=== PATIENT | female | born 1970 | race Caucasian/White ===

== ENCOUNTER 2023-08-15 15:05 | Outpatient (CLI) | payer MEDICAID | END 2023-08-15 23:59 | disposition critical access hospital (66) | LOC: EMS 15:05 | DX: M79.622 Pain in left upper arm (principal); R55 Syncope and collapse; W18.39XA Other fall on same level, initial encounter; Y92.008 Other place in unspecified non-institutional (private) residence as the place of occurrence of the external cause | CPT/HCPCS: A0425; A0427; A0999 ==

== ENCOUNTER 2023-08-15 15:25 | Emergency (ER) | payer MEDICAID ==
--- NOTE | 2023-08-15 15:30 | ED Physician Documentation ---
PD HPI Fall - Stated complaint Stated Complaint: GLF/FACE FIRST - History obtained from History obtained from: Patient - History of Present Illness Mechanism of injury: Syncope (fainted and fell forward. Friends were on other side of car and pt states was awake again as they got around from other side, so brief.) Fall distance: Standing position Where injury occurred: Home (in driveway walking toward the car.) Timing - onset: How many minutes ago (20), Today Injury(ies) location: Face, Neck (pain with ROM), Chest (feeling some pain left lateral chest wall), Left Uppper Extremity (feeling pain in shoulder, upper arm and at wrist.) Associated symptoms: LOC. No: AMS, Weakness, Paresthesias, Dyspnea, Nausea / vo miting Worsens with: Movement (of left arm, also some pain with neck movement.) Contributing factors: No: Anticoagulated, Intoxicated Similar symptoms before: Has not had sx before Recently seen: Clinic (Diagnosed recently with diabetes and is started on meds, metformin 1000 mg bid, and had sulfonaurea added as well. No recent illness. Had gotten up walking shortly [employer] and felt onset lightheaded and felt like was going to pass out. Fainted and fell forward, striking face on ground.) Review of Systems Constitutional: denies: Fever, Chills Nose: denies: Rhinorrhea / runny nose, Congestion Throat: denies: Sore throat Cardiac: denies: Palpitations Respiratory: denies: Dyspnea, Cough GI: denies: Nausea, Vomiting, Diarrhea Neurologic: reports: Generalized weakness, Syncope (today). denies: Focal weakness PD PAST MEDICAL HISTORY - Past Medical History Cardiovascular: None (no known heart disease. Has not had prior ECG. ) Respiratory: None Neuro: None Endocrine/Autoimmune: Type 2 diabetes - Present Medications Home Medications: Ambulatory Orders Medication Instructions Recorded Confirmed HYDROcod/ACETAM 5/325 [Orwell 5/325] 1 - 2 tablet PO Q6H PRN #20 tablet 08/15/23 Metformin HCl 1,000 mg PO BID #14 tablet 08/15/23 Ondansetron Odt [Zofran] 4 mg TL Q6H PRN #14 tablet 08/15/23 glipiZIDE [Glipizide] 10 mg PO BID #14 tablet 08/15/23 glipiZIDE [Glucotrol] 5 mg PO 0730 08/15/23 08/15/23 metFORMIN [Glucophage] 1,000 mg PO BIDWM 08/15/23 08/15/23 - Allergies Allergies/Adverse Reactions: Allergies Allergy/AdvReac Type Severity Reaction Status Date / Time Sulfa (Sulfonamide Allergy Unknown Verified 08/15/23 15:40 Antibiotics) PD ED PE NORMAL - Vitals Vital signs reviewed: Yes - General General: Alert and oriented X 3, Well developed/nourished, Other (appears in pain due to left arm, which is in splint from elbow to wrist. ) - HEENT HEENT: PERRL, EOMI, Other (upper lip and nose with abrasions. No laceration. No dental injury. ) - Neck Neck: Supple, no meningeal sign, No adenopathy, Other (some tender mid to lower cervical area. ) - Cardiac Cardiac: RRR, No murmur - Respiratory Respiratory: Clear bilaterally, Other (some tender left anterolateral chest without crepitance. ) - Abdomen Abdomen: Soft, Non tender - Back Back: No spinal TTP - Derm Derm: Normal color, Warm and dry - Extremities Extremities: Other (left shoulder at AC area and to mid humerus area with tenderness and some swelling, no obvious angulation. Wrist with some tenderness but not deformed. Normal business analyst manager, pulses, cap refill at hand/fingers. ) - Neuro Neuro: No motor deficit, No sensory deficit Results - Vitals Vitals: Vital Signs - 24 hr 08/15/23 08/15/23 08/15/23 15:30 15:40 17:40 Temperature 36.1 C L 36.4 C L Heart Rate 83 91 85 Respiratory 12 22 14 Rate Blood Pressure 164/84 H 164/84 H 142/80 H O2 Saturation 99 97 100 08/15/23 08/15/23 19:00 21:00 Temperature Heart Rate 80 77 Respiratory 25 H 15 Rate Blood Pressure 149/80 H 146/76 H O2 Saturation 94 96 Oxygen O2 Source Room air - EKG (time done) 15:30 EKG releavant findings:: EKG personally interpreted by author of this note. Relevant findings are: Rate: Rate (enter#) (88) Rhythm: NSR Lynn: Normal Intervals: Normal OH QRS: LVH (with secondary repolarization changes. No prior comparison available. ) Ischemia: Normal ST segments. No: ST elevation c/w ischemia, ST depression Compare to prior EKG: Old EKG unavailable - Labs Labs: Laboratory Tests 08/15/23 08/15/23 08/15/23 16:10 16:10 16:10 WBC 10.1 RBC 4.81 Hgb 13.1 Hct 40.5 MCV 84.2 MCH 27.2 MCHC 32.3 RDW 13.1 Plt Count 276 MPV 9.9 Neut # (Auto) 7.9 H Lymph # (Auto) 1.3 L [place] # (Auto) 0.6 Eos # (Auto) 0.2 Baso # (Auto) 0.1 Absolute Nucleated RBC 0.00 Nucleated RBC % 0.0 Sodium 130 L Potassium 4.2 Chloride 97 L Carbon Dioxide 22 Anion Gap 11.0 BUN 15 Creatinine 0.8 Estimated GFR (MDRD) 76 L Glucose 486 H Calcium 8.4 L Magnesium 1.6 L Total Bilirubin 0.3 AST 14 ALT 28 Alkaline Phosphatase 71 Troponin I High Sens 12.3 B-Natriuretic Peptide 75 Total Protein 6.6 Albumin 3.8 Globulin 2.8 Albumin/Globulin Ratio 1.4 Lipase 36 TSH 8.41 H - Rads (name of study) left upper ext (shoulder, humerus forearm) Relevant Findings:: Prelim report reviewed, EMP independent interpretation of test (shaft humerus fracture without much angulation nor displacement. Rest is okay. ) head/face/neck CT Relevant Findings:: Prelim report reviewed (no acute fractures nor ICH), EMP independent interpretation of test chest CT Relevant Findings:: Prelim report reviewed (no acute injury), EMP independent interpretation of test PD Medical Decision Making - ED course Complexity details: reviewed results, re-evaluated patient (patient given IV fluids and pain meds of toradol and dilaudid for the pains mainly of arm. Got CTs that did not show acute injuries. Xray left arm showed humerus fracture. Will give plint and sling. ), considered differential (arrives via EMS with lightheadedness abrupt followed by syncope and injury to face, neck, chest, left arm. ), d/w patient ED course: Patient with elevated blood sugar in 400s. This could lead to dehydrating status with postural syncope. Given IV fluids here in ER. CBC and lytes are okay. Creatinine is not elevated. After imaging, will check postural vitals and recheck blood sugar. Pt just getting back from CT at change of shift. Care given over to Dr. Daniels with verbal report. Departure - Departure Clinical Impression: Hyperglycemia due to diabetes mellitus, Syncope and collapse, Facial abrasion Humeral fracture Qualifiers: Encounter type: initial encounter Fracture type: closed Fracture morphology: 3- part Laterality: left Condition: Stable Record reviewed to determine appropriate education?: Yes Instructions: ED Cast Care Fiberglass, ED Hyperglycemia Diabetic, ED Fx Upper Ext, ED Fainting Unkn Cause Follow-Up: Domenic Lewis MD [Provider Admit Priv/Credential] - Prescriptions: glipiZIDE [Glipizide] 10 mg PO BID #14 tablet Metformin HCl 1,000 mg PO BID #14 tablet HYDROcod/ACETAM 5/325 [Orwell 5/325] 1 - 2 tablet PO Q6H PRN #20 tablet PRN Reason: Pain Ondansetron Odt [Zofran] 4 mg TL Q6H PRN #14 tablet PRN Reason: Nausea / Vomiting Comments: As we have discussed, your CT scans all look good. Your x-ray series show fractures in the near half of your upper arm bone, your humerus. For now, these will be immobilized with splinting and you will also need to use the sling to help keep the shoulder joint from moving. As we discussed, your blood sugar is high and this is at least in part due to the fact that you have been off your meds for the last couple of days. It is extremely important that you take your diabetic meds as directed and that you take them with you wherever you go so that you do not miss doses. Prescriptions for both metformin and glipizide, as well as for pain medication and a nausea medication in case the pain medicine makes you nauseated, have been electronically transmitted to the [facility] pharmacy in [place]. You have also been given a prepack of the pain medication for tonight. As far as not having your CPAP machine, you will have to find a position that works best for you, which will most likely be a more upright position. This will probably also be the best position for your arm. As far as moving at night, there is really nothing that can be done to prevent this and over the course of the coming weeks, you will get used to not moving your arm so much in the night. You have been given follow-up information for our local orthopedic clinic, in the event that you do not go home as soon as you are planning. However, it is probably most ideal that you get home and schedule follow-ups with both your primary doctor to address your thyroid and your blood sugar, And with orthopedics regarding your arm. You will need to talk to your primary doctor about Who they would recommend for orthopedic care down in [place]. As far as your fainting episode, this may be a short-lived issue that was related to your blood sugar and recent lack of medication, and possibly dehydration. However, if it becomes a recurrent issue, you will need to talk to your doctor about further evaluation, including event monitoring. You have been in a normal rhythm today and there is no evidence of a heart attack on your labs. No emergent condition has been identified tonight. You have been rehydrated with 2 bags of IV fluid and should aim to drink 8 to 10 cups of water per day. Forms: PCP List
[2023-08-15] MEDS ORDERED: SODIUM CHLORIDE 0.9% 1,000 ML IV STA ×2 (16:02→19:38)
[2023-08-15] MEDS ORDERED: HYDROmorphone 1 MG/ML CARPUJECT IVP STA ×2 (16:05→20:42)
[2023-08-15] MEDS ORDERED: KETOROLAC 15 MG/ML VIAL IVP STA (16:05)
[2023-08-15 16:16] LABS: BASOPHILS # (AUTO) 0.1 10^3/uL (0.0-0.1); BASOPHILS % (AUTO) 0.6 %; EOSINOPHILS # (AUTO) 0.2 10^3/uL (0.0-0.7); EOSINOPHILS % (AUTO) 1.8 %; HCT - HEMATOCRIT 40.5 % (37.0-47.0); HGB - HEMOGLOBIN 13.1 g/dL (12.0-16.0); LYMPHOCYTES # (AUTO) 1.3 10^3/uL (1.5-3.5); LYMPHOCYTES % (AUTO) 13.1 %; MEAN CORPUSCULAR HEMOGLOBIN 27.2 pg (27.0-31.0); MEAN CORPUSCULAR HGB CONC 32.3 g/dL (32.0-36.0); MEAN CORPUSCULAR VOLUME 84.2 fL (81.0-99.0); MEAN PLATELET VOLUME 9.9 fL (7.9-10.8); MONOCYTES # (AUTO) 0.6 10^3/uL (0.0-1.0); MONOCYTES % (AUTO) 5.8 %; NEUTROPHILS # (AUTO) 7.9 10^3/uL (1.5-6.6); NEUTROPHILS % (AUTO) 78.2 %; PLT - PLATELET COUNT 276 10^3/uL (130-450); RED BLOOD COUNT 4.81 10^6/uL (4.20-5.40); RED CELL DISTRIBUTION WIDTH 13.1 % (12.0-15.0); WHITE BLOOD COUNT 10.1 x10^3/uL (4.8-10.8)
[2023-08-15 16:38] LABS: TROPONIN I HIGH SENSITIVITY 12.3 ng/L (2.3-14.8)
[2023-08-15 16:40] LABS: ALBUMIN 3.8 g/dL (3.2-5.5); ALBUMIN/GLOBULIN RATIO 1.4 (1.0-2.2); BILIRUBIN,TOTAL 0.3 mg/dL (0.2-1.0); CALCIUM 8.4 mg/dL (8.5-10.3); CREATININE 0.8 mg/dL (0.6-1.3); POTASSIUM 4.2 mmol/L (3.5-4.5); TOTAL PROTEIN 6.6 g/dL (6.4-8.9)
[2023-08-15 16:45] LABS: MAGNESIUM 1.6 mg/dL (1.7-2.3)
[2023-08-15 16:47] LABS: THYROID STIMULATING HORMONE 8.41 uIU/mL (0.34-5.60)
--- NOTE | 2023-08-15 18:36 | XRAY Report ---
PROCEDURE: Shoulder 2+V LT INDICATIONS: fall with shoulder pain/injury TECHNIQUE: 3 views of the shoulder were acquired. COMPARISON: Correlation is made with the accompanying plain films. FINDINGS: Bones: There is a mildly displaced, comminuted fracture seen involving the left humeral head and nec k. There is an additional moderately displaced fracture line seen involving the proximal humeral shaf t. No shoulder dislocation can be seen. Soft tissues: No suspicious soft tissue calcifications. The visualized lungs are within normal limi ts. IMPRESSION: Fracture lines of the humeral head and neck as well as a moderately displaced fracture line of the pr oximal humeral shaft. Reviewed by: Jad Mcdowell MD on 08/15/2023 5:34 PM [facility] Approved by: Jad Mcdowell MD on 08/15/2023 5:34 PM [facility] Station ID: [id number]
--- NOTE | 2023-08-15 18:36 | XRAY Report ---
PROCEDURE: Humerus LT INDICATIONS: fall with left arm/shoulder pain TECHNIQUE: 2 views of the humerus were acquired. COMPARISON: Correlation is made with the accompanying plain films. FINDINGS: Bones: There is a mildly displaced fracture of the left humeral shaft. Additional fracture lines can be seen involving the left humeral head and neck. Soft tissues: No suspicious soft tissue calcifications or masses. IMPRESSION: Fractures of the humerus seen, including involving the left humeral head and neck as well as a modera tely displaced fracture involving humeral shaft. Reviewed by: Jad Mcdowell MD on 08/15/2023 5:35 PM [facility] Approved by: Jad Mcdowell MD on 08/15/2023 5:35 PM [facility] Station ID: [id number]
--- NOTE | 2023-08-15 18:37 | XRAY Report ---
PROCEDURE: Forearm LT INDICATIONS: fall, with shoulder and lower arm pain TECHNIQUE: 2 views of the forearm were acquired. COMPARISON: Correlation is made with the accompanying plain films. FINDINGS: Bones: No fractures or dislocations. No suspicious bony lesions. Soft tissues: No suspicious soft tissue calcifications or masses. IMPRESSION: No acute bony abnormality can be seen involving the forearm. Reviewed by: Jad Mcdowell MD on 08/15/2023 5:35 PM [place] Approved by: Jad Mcdowell MD on 08/15/2023 5:35 PM [facility] Station ID: [id number]
[2023-08-15] MEDS ORDERED: iohexoL-300 100 ML VIAL IVP ONE (19:20)
--- NOTE | 2023-08-15 19:32 | CT Report ---
PROCEDURE: Head WO INDICATIONS: fall with face/head injury TECHNIQUE: Noncontrast 4.5 mm thick angled axial sections acquired from the foramen magnum to the vertex. For r adiation dose reduction, the following was used: automated exposure control, adjustment of mA and/or kV according to patient size. COMPARISON: None. FINDINGS: Image quality: Excellent. CSF spaces: Basal cisterns are patent. No extra-axial fluid collections. Ventricles are normal in size and shape. Brain: No midline shift. No intracranial masses or hemorrhage. Wong-white matter interface is norm al. Skull and face: Calvarium and visualized facial bones are intact, without suspicious lesions. Sinuses: Visualized sinuses and mastoids are clear. IMPRESSION: No acute intracranial pathology. Reviewed by: Fausto Miller MD on 08/15/2023 7:31 PM PST Approved by: Fausto Miller MD on 08/15/2023 7:31 PM PST Station ID: [id number]
--- NOTE | 2023-08-15 19:34 | CT Report ---
PROCEDURE: Maxillofacial WO INDICATIONS: fall with facial/head injury TECHNIQUE: Noncontrast 1.5 mm thick axial images acquired from the mandible through the frontal sinuses, with co lola and sagittal reformatting. For radiation dose reduction, the following was used: automated ex posure control, adjustment of mA and/or kV according to patient size. COMPARISON: None. FINDINGS: Image quality: Excellent. Bones and teeth: Orbital cook are intact. Sinus cook show no fracture or deformity. Nasal bones and septum are intact. Visualized portions of the mandible demonstrate no fractures or subluxation. Zygomatic arches are intact. Pterygoid plates are intact. Visualized portions of the skull base an d auditory canals are intact. Sinuses: Paranasal sinuses are aerated, without fluid levels, mucosal thickening, or mucoceles. Mas toid air cells are aerated. Soft tissues: No edema, masses, or fluid collections. No enlarged lymph nodes. No soft tissue lace rations or debris. Vascular: Visualized vascular structures appear normal in the absence of contrast. Bony vascular fo ramina and canals are intact. IMPRESSION: No acute traumatic abnormality of the facial bones. Reviewed by: Fausto Miller MD on 08/15/2023 7:32 PM PST Approved by: Fausto Miller MD on 08/15/2023 7:32 PM PST Station ID: [id number]
--- NOTE | 2023-08-15 19:36 | CT Report ---
PROCEDURE: Cervical Spine WO INDICATIONS: fall, face injury/ head, neck chest pain TECHNIQUE: Noncontrast 3 mm thick sections acquired from the skull base to the T4 level. Sagittal and coronal r eformats were then constructed. For radiation dose reduction, the following was used: automated exp osure control, adjustment of mA and/or kV according to patient size. COMPARISON: None. FINDINGS: Image quality: Excellent. Bones: No fractures or dislocations. Visualized superior ribs are intact. Multilevel degenerative disc disease most prominently at C4-5, C5-6, and C6-7. Soft tissues: Prevertebral soft tissues are normal in thickness. No paravertebral hematomas. No ap ical pneumothoraces. IMPRESSION: No acute traumatic abnormality. Multilevel disc disease. Reviewed by: Fausto Miller MD on 08/15/2023 7:34 PM PST Approved by: Fausto Miller MD on 08/15/2023 7:34 PM PST Station ID: [id number]
[2023-08-15] MEDS ORDERED: INSULIN REGULAR HUMAN 300 UNIT/3 ML VIAL IVP STA (19:37)
--- NOTE | 2023-08-15 19:38 | CT Report ---
PROCEDURE: Chest W INDICATIONS: fall with anterior chest pain Left CONTRAST: Omni 300 80ml TECHNIQUE: After the administration of intravenous contrast, a CT scan of the chest was performed. Images were recorded and evaluated at appropriate window settings. Reformats: axial MIP of the chest, coronal and sagittal. For radiation dose reduction, the following was used: automated exposure control, adjustme nt of mA and/or kV according to patient size. COMPARISON: None. FINDINGS: Image quality: Excellent. Lungs and pleura: No consolidation. No pleural effusions. No pneumothorax. No suspicious pulmonary n odules which require follow up. Mediastinum: Heart size is normal. No pericardial effusion. No large vessel abnormality. No mediastin al adenopathy by size criteria. Chest wall and lower neck: Thyroid is unremarkable. No axillary or supraclavicular adenopathy by size . Bones: No aggressive osseous abnormality. Upper Abdomen: Unremarkable. IMPRESSION: No acute traumatic abnormality of the chest. Reviewed by: Fausto Miller MD on 08/15/2023 7:37 PM PST Approved by: Fausto Miller MD on 08/15/2023 7:37 PM PST Station ID: [id number]
[2023-08-15] MEDS ORDERED: BACITRACIN ZINC OINT 1 PACKET TOP STA (20:11)
[2023-08-15] MEDS ORDERED: HYDROcod/ACET 5/325 Prepack 4 PO STA (20:11)
[2023-08-15] MEDS ORDERED: ONDANSETRON 4 MG/2 ML VIAL IVP STA (20:42)
[2023-08-16 16:44] VITALS: BP 146/76; O2SAT 96
== END 2023-08-15 22:25 | disposition home or self-care (01) ==
LOC: ED 15:25
DX: S42.302A Unspecified fracture of shaft of humerus, left arm, initial encounter for closed fracture (principal); S00.81XA Abrasion of other part of head, initial encounter; W18.30XA Fall on same level, unspecified, initial encounter; Y93.01 Activity, walking, marching and hiking; Y92.008 Other place in unspecified non-institutional (private) residence as the place of occurrence of the external cause; R55 Syncope and collapse; E11.65 Type 2 diabetes mellitus with hyperglycemia; Z79.84 Long term (current) use of oral hypoglycemic drugs; Z79.899 Other long term (current) drug therapy
CPT/HCPCS: 36415; 70450; 70486; 71260; 72125; 73030; 73060; 73090; 80053; 83690; 83735; 83880; 84443; 84484; 85025; 93005; 96374; 96375; 99284; A9270; J1170; J1815; Q9967